=== PATIENT | male | born 1960 | race Caucasian/White ===

== ENCOUNTER → 2018-02-22 | Day surgery (SDC) | payer OTHER ==
[~2018-02-22] VITALS: Ht 185.4 cm; Wt 96.2 kg
[~2018-02-22] MED LIST: ATORVASTATIN CA10 M1 PO; FIBER GUMMIES2 GM PO; MULTIVITAMINS1 EAC9 PO; QUINAPRIL HCL10 M1 PO
--- NOTE | 2018-02-22 11:30 | Operative Report ---
Operative/Inv Procedure Report Surgery Date: 02/22/18 Name of Procedure: right ESWL Pre-Operative Diagnosis: right renal stone 6mm in size midpole Post-Operative Diagnosis: same Estimated Blood Loss: scant Surgeon/Security Systems Manager: Rakel Stephesn MD Anesthesia: local monitored anesthesi Complications: none Condition: stable Operative Indication: right renal colic Operative/Procedure Note Note: 57yo male with a hx renal cysts in the right kidney. He had a CT scan which showed the 5.5. RUP cyst to be unchanged and a 1.6cm cyst with a septation that has grown to 2.1cm and a 6mm cyst. He has intermittent flank discomfort but no pain. 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 He has no hx of hematuria. He has had kidney stones that required surgical intervention in the past. He was consented after the risks, benefits and alternatives were given and all questions were answered. he was marked on the right side. Patient was brought to the operating room and placed on the operating table in the supine position. Timeout was performed and IV antibiotics were given. He was optimally positioned. ESWL was started with 250 shocks at power 1-12, then 250 shocks at power 13-17, then 300 shocks at power 18-19 and finally 1700 shocks at power of 20 for a total of 2500 shocks. Patient tolerated the procedure well. He was transferred to the recovery room in stable condition. Findings: right 6mm midpole stone visibly changed after ESWL procedure Discharge Disposition: Same Day Admissions
== END ==
LOC: STS 01-25 07:00
DX: N20.0 Calculus of kidney (principal); Z87.442 Personal history of urinary calculi; I10 Essential (primary) hypertension; F17.200 Nicotine dependence, unspecified, uncomplicated; Z85.828 Personal history of other malignant neoplasm of skin
CPT/HCPCS: J0690